=== PATIENT | male | born 1970 | race Caucasian/White ===

== ENCOUNTER 2017-03-10 07:27 | Inpatient (IN) | payer OTHER ==
[~2017-03-10] VITALS: Ht 177.8 cm; Wt 100.0 kg
[2017-03-10 13:45] VITALS: BP 163/97; RESP 18
[2017-03-10 13:58] VITALS: PULSE 100
[2017-03-10] MEDS ORDERED: LISI40TA9 PO (14:05)
[2017-03-10] MEDS ORDERED: HYDR50TA3 PO (14:05)
[2017-03-10 14:43] VITALS: Ht 177.8 cm; Wt 100.0 kg
[2017-03-10] MEDS ORDERED: ATOR40TA68 PO (14:50)
[2017-03-10] MEDS ORDERED: DOCUSATE SODIUM 100 MG CAP PO PRN (15:00)
[2017-03-10] MEDS ORDERED: NACL 0.9% 3 ML SYG IV SCH (15:00)
[2017-03-10] MEDS ORDERED: ACETAMINOPHEN 325 MG TAB PO PRN (15:00)
[2017-03-10] MEDS ORDERED: LISINOPRIL 20 MG TAB PO SCH (15:00)
[2017-03-10] MEDS ORDERED: MAGNESIUM HYDROXIDE 30ML CUP PO PRN (15:00)
[2017-03-10] MEDS ORDERED: ONDANSETRON 4 MG INJ IV PRN (15:00)
[2017-03-10] MEDS ORDERED: NITROGLYCERIN (SL) 0.4 MG TAB SL PRN (15:00)
[2017-03-10] MEDS ORDERED: BISACODYL 10 MG SUPP PR PRN (15:00)
[2017-03-10] MEDS ORDERED: HYDROCODONE/APAP (5/325) TAB PO PRN (15:00)
[2017-03-10] MEDS ORDERED: morphine 2 MG INJ IV PRN (15:00)
[2017-03-10] MEDS ORDERED: LORAZEPAM 0.5 MG TAB PO PRN (15:00)
[2017-03-10] MEDS ORDERED: PROP10TA6 PO (15:03)
--- NOTE | 2017-03-10 15:05 | RADRPT ---
Echocardiogram Report Patient Name: SELAM ROBIN Gender: Male Date: 1970 Study Date: 10-Mar-2017 Program Aide: Jessenia [facility] Location: 5548 Ref. Physician: LG DEVINE Quality: Adequate Procedures: Transthoracic echocardiogram with complete 2D, M-Mode, and doppler examination. Indications: Elevated troponin. 2D/M Mode Doppler Measurement Value Normal Ranges Measurement Value Normal Ranges LVIDd 2D 4.3 3.5 - 5.6 cm AV Peak Kian 2.0 m/sec LVIDs 2D 2.8 2.1 - 4.1 cm AV Peak PG 16.0 mmHg FS 2D 35.6 % LVOT Peak Kian 1.5 m/sec LVPWd 2D 1.3 0.6 - 1.1 cm LVOT Peak PG 9.0 mmHg IVSd 2D 1.5 0.6 - 1.1 cm MV E Peak Kian 0.7 m/sec IVS/LVPW 2D 1.1 MV A Peak Kian 1.2 m/sec AoR Diam 2D 2.8 2.0 - 3.7 cm MV E/A 0.6 LA/Ao 2D 1 0 - 1 MV Decel Time 88 msec EDV 2D 82.3 cm3 MV E/A 0.6 ESV 2D 22.0 cm3 LA Dimen 2D 3.8 2.3 - 4.0 cm Findings Left Ventricle: Normal left ventricular systolic function. Normal left ventricular cavity size. Mild concentric left ventricular hypertrophy. Ejection fraction is visually estimated at 65 %. Abnormal Diastolic Function. Right Ventricle: Normal right ventricular size. Normal right ventricular systolic function. Left Atrium: The left atrium is normal in size. Right Atrium: The right atrium is normal in size. Mitral Valve: Mild mitral leaflet calcification. Mild mitral annular calcification. Trace mitral regurgitation. Aortic Valve: Normal appearance of the aortic valve. No significant aortic stenosis or insufficiency. Tricuspid Valve: Normal appearance of the tricuspid valve. There is trace tricuspid regurgitation. Pulmonic Valve: Pulmonic valve not well visualized. There is trace pulmonic regurgitation. Pericardium: Normal pericardium with no significant pericardial effusion. Aorta: Normal aortic root. IVC: Normal size and normal respiratory collapse consistent with normal right atrial pressure. Conclusions 1.Normal left ventricular systolic function. Normal left ventricular cavity size. Mild concentric left ventricular hypertrophy. Ejection fraction is visually estimated at 65 %. Abnormal Diastolic Function. 2.Normal right ventricular size. Normal right ventricular systolic function. 3.The left atrium is normal in size. 4.The right atrium is normal in size. 5.No significant valvular stenosis or regurgitation seen. 6.Normal pericardium with no significant pericardial effusion. Electronically Signed By: Lg Devine 10-Mar-2017 15:05:18 0700 Patient Name: SELAM ROBIN Study Date: 10-Mar-[id number]
[2017-03-10 15:30] LABS: BASOPHILS % 0.2 % (0.0-2.0); HEMATOCRIT 39.4 % (42.0-52.0); HEMOGLOBIN 14.4 g/dl (14.0-18.0); LYMPHOCYTES # 1.1 10^3/ul (0.8-2.9); LYMPHOCYTES % 10.7 % (15.0-51.0); MEAN CORPUSCULAR HEMOGLOBIN 30.3 pg (29.0-33.0); MEAN CORPUSCULAR HGB CONC 36.5 g/dl (32.0-37.0); MEAN CORPUSCULAR VOLUME 82.8 fl (82.0-101.0); MONOCYTE # 0.2 10^3/ul (0.3-0.9); MONOCYTES % 2.4 % (0.0-11.0); NEUTROPHIL # 8.8 10^3/ul (1.6-7.5); NEUTROPHILS % 86.4 % (39.0-77.0); PLATELET COUNT 251 10^3/UL (140-415); RED BLOOD COUNT 4.76 10^6/ul (4.70-6.10); RED CELL DISTRIBUTION WIDTH 12.1 % (11.5-14.5); WHITE BLOOD COUNT 10.2 10^3/ul (4.8-10.8)
--- NOTE | 2017-03-10 15:43 | HP ---
Date/Time of Note Date/Time of Note DATE: 03/10/17 TIME: 15:15 Assessment/Plan VTE Prophylaxis VTE Prophylaxis Intervention: LMWH, SCD's Lines/Catheters IV Catheter Type (from Nrs): Saline Lock Assessment/Plan Assessment/Plan 46-year-old male with: 1. Left-sided pleuritic type chest pain, in setting of 4 weeks of productive cough, URI type symptoms, CT angiogram consistent with bronchiolitis, likely patient has pericarditis or myocarditis as his troponin have been slightly elevated at the outside hospital. He did get ibuprofen at the outside hospital. ESR and CRP are pending. Check enzymes have been reordered, 2D echocardiogram also pending. Cardiology is consulted and will be evaluating the patient. I will put him on some Levaquin for probable community-acquired URI/bronchitis. 2. Bronchiolitis/bronchitis, will place the patient on Levaquin 750 mg p.o. daily for 5 days. Nebulizer treatments as needed for bronchospasms. He did get a dose of steroids at [facility]. 3. Hypertension: Resume home medications, beta-blockers have been added. Hydralazine as needed. 4. Hyperlipidemia: Check fasting lipid panel in a.m., continue statin therapy. Prophylaxis: Lovenox for DVT prophylaxis, Pepcid for GI prophylaxis Disposition: Cardiology evaluation ongoing. Monitor on telemetry. HPI/ROS Admit Date/Time Admit Date/Time Mar 10, 2017 at 13:10 Hx of Present Illness Chief complaint: Cough, subacute, left-sided chest pain History of presenting illness: This is a 46-year-old male with history of hypertension on multiple medications, hyperlipidemia, cough for the past 3-1/2 to 4 weeks with productive yellow to brown sputum, and acute onset of left- sided sharp, pinprick chest pain over the past 24-48 hrs. Patient also reports dyspnea on exertion over the past 3 weeks and fatigue. No nausea, no vomiting, subjective fevers and chills on and off. He denies any previous diagnosis of coronary artery disease. He reports one sick contact at the beginning of his symptoms, at work. Otherwise at home no one else is has been sick. At [facility], patient had a chest x-ray which was negative, he had a CT angiogram that showed suggested bronchiolitis. However on his laboratory data he was found to have a normal white blood cell count and a troponin of 0.46 x 2 and 0.44. EKG did not show any acute ischemic changes. Patient was given apparently a dose of ibuprofen, dexamethasone, nebulizer treatment, aspirin, nitroglycerin. He was diagnosed with non-ST elevation DE, given a dose of Lovenox also and transferred to [facility] for cardiology evaluation. He will also given azithromycin. Upon arrival patient has been stable, he is noted to be slightly tachycardic and hypertensive. Laboratory data along with the 2D echocardiogram are pending. Dr. Devine from cardiology has been consulted. ROS Constitutional: chills, fatigue Eyes: no complaints ENT: no complaints Respiratory: no complaints Cardiovascular: chest pain (Pleuritic in nature) Gastrointestinal: no complaints Genitourinary: no complaints Musculoskeletal: no complaints Skin: no complaints Neurologic: no complaints Endocrine: no complaints Psychological: no complaints PMH/Family/Social Past Medical History Hypertension Hyperlipidemia Obesity Past Surgical History Status post left shoulder surgery remotely Family History Significant Family History: no pertinent family hx (Coronary artery disease in brother) Social History Alcohol Use: occasionally Smoking Status: Never smoker Drug Use: none Exam/Review of Systems Vital Signs Vitals Vital Signs Date Time Temp Pulse Resp B/P Pulse Ox O2 Delivery O2 Flow Rate FiO2 03/10/17 13:58 100 03/10/17 13:45 97.7 18 163/97 97 Exam Constitutional: alert, oriented, other (Obese), well developed Respiratory: clear to auscultation, normal air movement Cardiovascular: nl pulses, regular rate and rhythm Gastrointestinal: non-tender, soft Musculoskeletal: nl extremities to inspection Extremities: normal pulses 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
[2017-03-10 16:00] VITALS: PULSE 95
[2017-03-10 16:00] LABS: ANION GAP 19 (8-16); BLOOD UREA NITROGEN 21 mg/dl (7-20); CALCIUM 9.8 mg/dl (8.4-10.2); CARBON DIOXIDE 26 mmol/L (21-31); CHLORIDE 98 mmol/L (97-110); CREATINE KINASE 80 IU/L (23-200); CREATININE 0.92 mg/dl (0.61-1.24); GLUCOSE 196 mg/dl (70-220); POTASSIUM 3.7 mmol/L (3.5-5.1); SODIUM 139 mmol/L (135-144)
[2017-03-10 16:10] LABS: CK-MB 0.31 ng/ml (0.0-2.4); TROPONIN-I < 0.012 ng/ml (0.00-0.12)
[2017-03-10] MEDS: METOPROLOL 25 MG TAB PO SCH ×2 (16:16→20:54)
[2017-03-10 16:20] LABS: C-REACTIVE PROTEIN 0.7 mg/dl (0.0-0.9)
[2017-03-10 16:24] VITALS: BP 166/100; RESP 20
--- NOTE | 2017-03-10 16:27 | CONS ---
Date/Time of Note Date/Time of Note DATE: 03/10/17 TIME: 16:20 Assessment/Plan Assessment/Plan Additional Assessment/Plan Chest pain, cough Minimally elevated troponin Preserved ejection fraction Hypertension Dyslipidemia Anxiety -Patient with symptoms of cough for 3 weeks which has become more productive. Troponins at outside facility was 0.4 on 2 draws. Troponins here are negative. Echocardiogram with preserved ejection fraction. Patient with symptoms of cough and night sweats going on for a few weeks with minimally elevated troponin at outside facility, this is less likely secondary to coronary ischemia but still a possibility given risk factors. Recommend continuing telemetry monitoring, proceed with Lexiscan nuclear cardiac perfusion study. Given cough, would stop ADI inhibitor at the current time. Consultation Date/Type/Reason Admit Date/Time Mar 10, 2017 at 13:10 Type of Consultation: cv Reason for Consultation Chest pain Hx of Present Illness This is a 46-year-old male who presented to an outside facility secondary to cough and chest pain. Patient admits to cough starting approximately 3 weeks ago which has at times been productive and at times nonproductive. He developed chest discomfort with coughing over the past few weeks. The day prior to admission, patient also with pins and needle sensation on the left side of chest. Because of the above reasons, patient went to the emergency room for evaluation care. Troponins were mildly elevated and outside facility and patient transferred to our facility for further cardiac evaluation. Prior to this, he denies symptoms of shortness of breath with activity but does complain of fatigue. He does complain of night sweats. 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 Exam/Review of Systems Vital Signs Vitals Vital Signs Date Time Temp Pulse Resp B/P Pulse Ox O2 Delivery O2 Flow Rate FiO2 03/10/17 16:00 95 03/10/17 13:45 97.7 18 163/97 97 Exam No apparent distress Constitutional: alert, obese, oriented Head: normocephalic Respiratory: other (Coarse breath sounds bilaterally with scattered rhonchi more so at the right base) Cardiovascular: other (S1-S2 heard), regular rate and rhythm Gastrointestinal: bowel sounds, non-tender, other (No guarding), soft Extremities: other (No significant edema) Results Result Diagram: 03/10/17 1519 03/10/17 1519 Results 24 hrs Laboratory Tests Test 03/10/17 15:19 White Blood Count 10.2 Red Blood Count 4.76 Hemoglobin 14.4 Hematocrit 39.4 L Mean Corpuscular Volume 82.8 Mean Corpuscular Hemoglobin 30.3 Mean Corpuscular Hemoglobin Concent 36.5 Red Cell Distribution Width 12.1 Platelet Count 251 Mean Platelet Volume 10.0 Neutrophils % 86.4 H Lymphocytes % 10.7 L Monocytes % 2.4 Eosinophils % 0.0 Basophils % 0.2 Nucleated Red Blood Cells % 0.0 Neutrophils # 8.8 H Lymphocytes # 1.1 Monocytes # 0.2 L Eosinophils # 0.0 Basophils # 0.0 Nucleated Red Blood Cells # 0.0 Sodium Level 139 Potassium Level 3.7 Chloride Level 98 Carbon Dioxide Level 26 Anion Gap 19 H Blood Urea Nitrogen 21 H Creatinine 0.92 Glucose Level 196 Calcium Level 9.8 Creatine Kinase 80 Creatine Kinase Index 0.4 Creatinine Kinase MB (Mass) 0.31 Troponin I < 0.012 C-Reactive Protein Pending Medications Medications Current Medications Lorazepam (Ativan) 0.5 mg Q8H PRN PO ANXIETY; Start 03/10/17 at 15:00 Ondansetron HCl (Zofran Inj) 4 mg Q6H PRN IV NAUSEA AND/OR VOMITING; Start at 15:00 Aspirin (Aspirin) 81 mg DAILY PO ; Start 03/11/17 at 09:00 Nitroglycerin (Nitroglycerin (Sl Tab) 0.4 Mg) 1 tab Q5M PRN SL CHEST PAIN; Start 03/10/17 at 15:00 Acetaminophen (Tylenol Tab) 650 mg Q6H PRN PO PAIN LEVEL 1-3 OR FEVER Last administered on 03/10/17t 16:10; Admin Dose 650 MG; Start 03/10/17 at 15:00 Acetaminophen/ Hydrocodone Bitart ([place] (5/325)) 1 tab Q6H PRN PO PAIN LEVEL 4 -6; Start 03/10/17 at 15:00 Morphine Sulfate (morphine) 2 mg Q4H PRN IV PAIN LEVEL 7-10; Start 03/10/17 at 15:00 Docusate Sodium (Colace) 100 mg Q12H PRN PO CONSTIPATION; Start 03/10/17 at 15 :00 Magnesium Hydroxide (Milk Of Mag) 30 ml DAILY PRN PO CONSTIPATION; Start 03/10 at 15:00 Bisacodyl (Dulcolax Supp) 10 mg DAILY PRN [place] CONSTIPATION; Start 03/10/17 at 15:00 Famotidine (Pepcid) 20 mg Q12 PO ; Start 03/10/17 at 21:00 Enoxaparin Sodium (Lovenox) 40 mg DAILY SC ; Start 03/11/17 at 09:00 Atorvastatin Calcium (Lipitor) 40 mg QHS PO ; Start 03/10/17 at 21:00 Lisinopril (Zestril) 40 mg DAILY PO Last administered on 03/10/17t 16:15; Admin Dose 40 MG; Start 03/10/17 at 15:00 Metoprolol Tartrate (Lopressor) 25 mg BID PO Last administered on 03/10/17t 16 :16; Admin Dose 25 MG; Start 03/10/17 at 15:00 Levofloxacin (Levaquin) 750 mg DAILY@06 PO ; Start 03/10/17 at 16:30 Procedures Procedures ECG done today demonstrates sinus rhythm 97 bpm, QRS 94 ms, nonspecific T-wave abnormalities CT pulmonary angiogram done yesterday with no evidence of pulmonary emboli, evidence of bronchiolitis Lg Devine DO Mar 10, 2017 16:27
[2017-03-10] MEDS: LEVOFLOXACIN 750 MG TABLET PO SCH (16:54)
[2017-03-10] MEDS: ATORVASTATIN 40 MG TAB PO SCH ×2 (19:27→20:54)
[2017-03-10 20:00] VITALS: PULSE 91
[2017-03-10 20:24] VITALS: BP 144/90; RESP 20
[2017-03-10] MEDS: FAMOTIDINE 20 MG TAB PO SCH (20:54)
[2017-03-11] VITALS (8 sets, daily range): BP systolic 136–160; BP diastolic 74–102; PULSE 64–86; RESP 20
[2017-03-11] MEDS: LEVOFLOXACIN 750 MG TABLET PO SCH (06:15)
[2017-03-11] MEDS: METOPROLOL 25 MG TAB PO SCH (08:27)
[2017-03-11] MEDS: FAMOTIDINE 20 MG TAB PO SCH (08:27)
[2017-03-11 08:28] LABS: CHOL/HDL RATIO 6.3 RATIO
[2017-03-11 08:32] LABS: ALBUMIN 4.4 g/dl (3.3-4.9); ALBUMIN/GLOBULIN RATIO 1.46; BILIRUBIN,INDIRECT 0.4 mg/dl (0-1.1); BILIRUBIN,TOTAL 0.4 mg/dl (0.2-1.3); CALCIUM 9.2 mg/dl (8.4-10.2); CREATININE 0.9 mg/dl (0.61-1.24); MAGNESIUM 1.9 mg/dl (1.7-2.5); POTASSIUM 3.7 mmol/L (3.5-5.1); TOTAL PROTEIN 7.4 g/dl (6.1-8.1)
[2017-03-11] MEDS ORDERED: ASPIRIN 81 MG TAB PO SCH (09:00)
[2017-03-11] MEDS ORDERED: ENOXAPARIN 40 MG/0.4 ML SYG SC SCH (09:00)
[2017-03-11] MEDS ORDERED: REGADENOSON 0.4 MG/5 ML SYG ONE (09:15)
[2017-03-11] MEDS ORDERED: GUAIFENESIN 20 MG/ML 5ML CUP PO PRN (11:00)
--- NOTE | 2017-03-11 12:41 | PN ---
Date/Time of Note Date/Time of Note DATE: 03/11/17 TIME: 12:22 Assessment/Plan VTE Prophylaxis VTE Prophylaxis Intervention: LMWH Lines/Catheters IV C[facility]ter Type (from [facility]): Saline Lock Assessment/Plan Assessment/Plan 46-year-old male with: 1. Left-sided pleuritic type chest pain, in setting of 4 weeks of productive cough, URI type symptoms, CT angiogram consistent with bronchiolitis, likely patient has pericarditis or myocarditis as his troponin have been slightly elevated at the outside hospital. He did get ibuprofen at the outside hospital. ESR and CRP negative. Repeat cardiac enzymes here at [facility] completely negative 2D echocardiogram also within normal limits. Appreciate cardiology recommendation, stress test in progress, depending on result disposition will be finalized. Continue Levaquin Levaquin for probable community-acquired URI/bronchitis 2. Bronchiolitis/bronchitis, continue Levaquin 750 mg p.o. daily for 5 days. Nebulizer treatments as needed for bronchospasms. He did get a dose of steroids at [facility]. 3. Hypertension: Continue home medications along with beta-blockers. 4. Hyperlipidemia: Continue Lipitor 40 mg p.o. nightly. Prophylaxis: Lovenox for DVT prophylaxis, Pepcid for GI prophylaxis Disposition: Stress test in progress, depending on results, disposition to be finalized. Subjective 24 Hr Interval Summary Free Text/Dictation Patient was no complaints today, he is not complaining of chest pain, respiratory status stable, on room air, undergoing stress test currently. Depending on results, he may be discharged later today or requiring additional procedures. 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, nl mental status, nl speech, nl strength Results Result Diagram: 03/10/17 1519 03/11/17 0729 Results 24 hrs Laboratory Tests Test 03/10/17 15:19 03/11/17 07:26 03/11/17 07:29 White Blood Count 10.2 Red Blood Count 4.76 Hemoglobin 14.4 Hematocrit 39.4 L Mean Corpuscular Volume 82.8 Mean Corpuscular Hemoglobin 30.3 Mean Corpuscular Hemoglobin Concent 36.5 Red Cell Distribution Width 12.1 Platelet Count 251 Mean Platelet Volume 10.0 Neutrophils % 86.4 H Lymphocytes % 10.7 L Monocytes % 2.4 Eosinophils % 0.0 Basophils % 0.2 Nucleated Red Blood Cells % 0.0 Neutrophils # 8.8 H Lymphocytes # 1.1 Monocytes # 0.2 L Eosinophils # 0.0 Basophils # 0.0 Nucleated Red Blood Cells # 0.0 Erythrocyte Sedimentation Rate 5 Sodium Level 139 141 Potassium Level 3.7 3.7 Chloride Level 98 98 Carbon Dioxide Level 26 30 Anion Gap 19 H 17 H Blood Urea Nitrogen 21 H 21 H Creatinine 0.92 0.90 Glucose Level 196 168 Calcium Level 9.8 9.2 Creatine Kinase 80 Creatine Kinase Index 0.4 Creatinine Kinase MB (Mass) 0.31 Troponin I < 0.012 C-Reactive Protein 0.7 Triglycerides Level 350 H Cholesterol Level 236 H LDL Cholesterol, Calculated 129 HDL Cholesterol 37 Cholesterol/HDL Ratio 6.3 Magnesium Level 1.9 Total Bilirubin 0.4 Direct Bilirubin 0.00 Indirect Bilirubin 0.4 Aspartate Amino Transf (AST/SGOT) 34 Alanine Aminotransferase (ALT/SGPT) 96 H Alkaline Phosphatase 56 Total Protein 7.4 Albumin 4.4 Globulin 3.00 Albumin/Globulin Ratio 1.46 Medications Medications Current Medications Lorazepam (Ativan) 0.5 mg Q8H PRN PO ANXIETY; Start 03/10/17 at 15:00 Ondansetron HCl (Zofran Inj) 4 mg Q6H PRN IV NAUSEA AND/OR VOMITING; Start at 15:00 Aspirin (Aspirin) 81 mg DAILY PO Last administered on 03/11/17t 08:27; Admin Dose 81 MG; Start 03/11/17 at 09:00 Nitroglycerin (Nitroglycerin (Sl Tab) 0.4 Mg) 1 tab Q5M PRN SL CHEST PAIN; Start 03/10/17 at 15:00 Acetaminophen (Tylenol Tab) 650 mg Q6H PRN PO PAIN LEVEL 1-3 OR FEVER Last administered on 03/10/17 16:10; Admin Dose 650 MG; Start 03/10/17 at 15:00 Acetaminophen/ Hydrocodone Bitart ([place] (5/325)) 1 tab Q6H PRN PO PAIN LEVEL 4 -6; Start 03/10/17 at 15:00 Morphine Sulfate (morphine) 2 mg Q4H PRN IV PAIN LEVEL 7-10; Start 03/10/17 at 15:00 Docusate Sodium (Colace) 100 mg Q12H PRN PO CONSTIPATION; Start 03/10/17 at 15 :00 Magnesium Hydroxide (Milk Of Mag) 30 ml DAILY PRN PO CONSTIPATION; Start 03/10 at 15:00 Bisacodyl (Dulcolax Supp) 10 mg DAILY PRN [place] CONSTIPATION; Start 03/10/17 at 15:00 Famotidine (Pepcid) 20 mg Q12 PO Last administered on 03/11/17 08:27; Admin Dose 20 MG; Start 03/10/17 at 21:00 Enoxaparin Sodium (Lovenox) 40 mg DAILY SC Last administered on 03/11/17 08: 29; Admin Dose 40 MG; Start 03/11/17 at 09:00 Atorvastatin Calcium (Lipitor) 40 mg QHS PO Last administered on 03/10/17 20: 54; Admin Dose 40 MG; Start 03/10/17 at 21:00 Metoprolol Tartrate (Lopressor) 25 mg BID PO Last administered on 03/11/17 08 :27; Admin Dose 25 MG; Start 03/10/17 at 15:00 Levofloxacin (Levaquin) 750 mg DAILY@06 PO Last administered on 03/11/17 06: 15; Admin Dose 750 MG; Start 03/10/17 at 16:30 Guaifenesin (Robitussin Liquid Cup) 200 mg Q6H PRN PO COUGH Last administered on 03/11/17 12:02; Admin Dose 200 MG; Start 03/11/17 at 11:00 MUSA GABRIEL Mar 11, 2017 12:32
--- NOTE | 2017-03-11 13:16 | RADRPT ---
AMENDMENT: 03/11/2017 3:26:42 PM Annabel Queen Md In addition, poststress perfusion images were obtained in the prone position, which confirmed the pr esence of reduced perfusion in the inferior wall, visualized on the poststress perfusion images obta ined in the supine position and on the resting perfusion images. PROCEDURE: Lexiscan myocardial perfusion study CLINICAL INDICATION: 46 -year-old patient complaining of chest pain. TECHNIQUE: Lexiscan 0.4 mg intravenously separate acquisition gated myocardial perfusion SPECT usi ng Tc 99m Myoview 33.3 mCi intravenously at stress and Tc-99m Myoview, 10.4 mCi intravenously at res t was performed using the rest/stress sequence. Poststress Myoview SPECT images were obtained in th e supine position. COMPARISON: No prior studies. FINDINGS: Perfusion images reveal a moderate size moderate in degree nonreversible perfusion defect in the inf erior wall. Lexiscan post stress gated SPECT images demonstrate mild hypokinesis of the inferior wall.. IMPRESSION: 1. The type and distribution of the scintigraphic abnormalities are most consistent with a moderate -sized nonreversible perfusion defect in the inferior wall. 2. Mild hypokinesis of the inferior wall. 3. The left ventricle ejection fraction at stress is 41%. A call report was made to Dr. Devine at 01:13 p.m. on March 11, 2017. RPTAT: HH .Annabel Queen MD, MD Date Time Electronically viewed and signed by .Annabel Queen MD, MD on 03/11/2017 15:26 .L/
--- NOTE | 2017-03-11 14:06 | CONS ---
Date/Time of Note Date/Time of Note DATE: 03/11/17 TIME: 14:05 Assessment/Plan Assessment/Plan Additional Assessment/Plan Chest pain, cough Minimally elevated troponin from outside facility Preserved ejection fraction Hypertension Dyslipidemia Anxiety -Patient with improvement in cough and denies shortness of breath. Troponins at our facility have been negative. Plan for nuclear cardiac perfusion study today. Antibiotics as per primary team. Consultation Date/Type/Reason Admit Date/Time Mar 10, 2017 at 13:10 Initial Consult Date Type of Consultation: cv 24 HR Interval Summary Free Text/Dictation Patient feeling better today, still with cough but improved. Denies current chest pain or shortness of breath Exam/Review of Systems Vital Signs Vitals Vital Signs Date Time Temp Pulse Resp B/P Pulse Ox O2 Delivery O2 Flow Rate FiO2 03/11/17 12:41 98.1 67 20 160/96 93 Intake and Output 03/10/17 03/10/17 03/11/17 15:00 23:00 07:00 Intake Total 600 ml 300 ml Balance 600 ml 300 ml Exam No apparent distress Constitutional: alert, oriented Head: normocephalic Respiratory: other (Coarse breath sounds bilaterally with scattered rhonchi, minimal end expiratory wheezing) Cardiovascular: other (S1-S2 heard), regular rate and rhythm Gastrointestinal: bowel sounds, non-tender, soft Extremities: other (No significant edema) Results Result Diagram: 03/10/17 1519 03/11/17 0729 Results 24 hrs Laboratory Tests Test 03/10/17 15:19 03/11/17 07:26 03/11/17 07:29 White Blood Count 10.2 Red Blood Count 4.76 Hemoglobin 14.4 Hematocrit 39.4 L Mean Corpuscular Volume 82.8 Mean Corpuscular Hemoglobin 30.3 Mean Corpuscular Hemoglobin Concent 36.5 Red Cell Distribution Width 12.1 Platelet Count 251 Mean Platelet Volume 10.0 Neutrophils % 86.4 H Lymphocytes % 10.7 L Monocytes % 2.4 Eosinophils % 0.0 Basophils % 0.2 Nucleated Red Blood Cells % 0.0 Neutrophils # 8.8 H Lymphocytes # 1.1 Monocytes # 0.2 L Eosinophils # 0.0 Basophils # 0.0 Nucleated Red Blood Cells # 0.0 Erythrocyte Sedimentation Rate 5 Sodium Level 139 141 Potassium Level 3.7 3.7 Chloride Level 98 98 Carbon Dioxide Level 26 30 Anion Gap 19 H 17 H Blood Urea Nitrogen 21 H 21 H Creatinine 0.92 0.90 Glucose Level 196 168 Calcium Level 9.8 9.2 Creatine Kinase 80 Creatine Kinase Index 0.4 Creatinine Kinase MB (Mass) 0.31 Troponin I < 0.012 C-Reactive Protein 0.7 Triglycerides Level 350 H Cholesterol Level 236 H LDL Cholesterol, Calculated 129 HDL Cholesterol 37 Cholesterol/HDL Ratio 6.3 Magnesium Level 1.9 Total Bilirubin 0.4 Direct Bilirubin 0.00 Indirect Bilirubin 0.4 Aspartate Amino Transf (AST/SGOT) 34 Alanine Aminotransferase (ALT/SGPT) 96 H Alkaline Phosphatase 56 Total Protein 7.4 Albumin 4.4 Globulin 3.00 Albumin/Globulin Ratio 1.46 Medications Medications Current Medications Lorazepam (Ativan) 0.5 mg Q8H PRN PO ANXIETY; Start 03/10/17 at 15:00 Ondansetron HCl (Zofran Inj) 4 mg Q6H PRN IV NAUSEA AND/OR VOMITING; Start at 15:00 Aspirin (Aspirin) 81 mg DAILY PO Last administered on 03/11/17 08:27; Admin Dose 81 MG; Start 03/11/17 at 09:00 Nitroglycerin (Nitroglycerin (Sl Tab) 0.4 Mg) 1 tab Q5M PRN SL CHEST PAIN; Start 03/10/17 at 15:00 Acetaminophen (Tylenol Tab) 650 mg Q6H PRN PO PAIN LEVEL 1-3 OR FEVER Last administered on 03/10/17 16:10; Admin Dose 650 MG; Start 03/10/17 at 15:00 Acetaminophen/ Hydrocodone Bitart ([place] (5/325)) 1 tab Q6H PRN PO PAIN LEVEL 4 -6; Start 03/10/17 at 15:00 Morphine Sulfate (morphine) 2 mg Q4H PRN IV PAIN LEVEL 7-10; Start 03/10/17 at 15:00 Docusate Sodium (Colace) 100 mg Q12H PRN PO CONSTIPATION; Start 03/10/17 at 15 :00 Magnesium Hydroxide (Milk Of Mag) 30 ml DAILY PRN PO CONSTIPATION; Start 03/10 at 15:00 Bisacodyl (Dulcolax Supp) 10 mg DAILY PRN [place] CONSTIPATION; Start 03/10/17 at 15:00 Famotidine (Pepcid) 20 mg Q12 PO Last administered on 03/11/17 08:27; Admin Dose 20 MG; Start 03/10/17 at 21:00 Enoxaparin Sodium (Lovenox) 40 mg DAILY SC Last administered on 03/11/17 08: 29; Admin Dose 40 MG; Start 03/11/17 at 09:00 Atorvastatin Calcium (Lipitor) 40 mg QHS PO Last administered on 03/10/17 20: 54; Admin Dose 40 MG; Start 03/10/17 at 21:00 Metoprolol Tartrate (Lopressor) 25 mg BID PO Last administered on 03/11/17 08 :27; Admin Dose 25 MG; Start 03/10/17 at 15:00 Levofloxacin (Levaquin) 750 mg DAILY@06 PO Last administered on 03/11/17 06: 15; Admin Dose 750 MG; Start 03/10/17 at 16:30 Guaifenesin (Robitussin Liquid Cup) 200 mg Q6H PRN PO COUGH Last administered on 03/11/17 12:02; Admin Dose 200 MG; Start 03/11/17 at 11:00 Lg Devine DO Mar 11, 2017 14:06
--- NOTE | 2017-03-11 15:31 | EN ---
Date/Time of Note Date/Time of Note DATE: 03/11/17 TIME: 15:25 Event Note Cardiology Cardiology Event Note 03/11/17 Lexiscan ECG Report 46 y/o male with chest pain Baseline ECG SR @63bpm, inferolateral T wave inversions BP: 167/98 Lexiscan administered as per protocol Symptoms of hot flashes, shortness of breath which resolved in recovery Peak BP 181/107 ECG: no significant changes Arrhythmia: rare PVC ECG interpretation: Non-ischemic Lg Devine DO Mar 11, 2017 15:31
--- NOTE | 2017-03-11 16:31 | PDOCDIS ---
Discharge Instructions CONDITION Patient Condition: Stable HOME CARE INSTRUCTIONS: Diet Instructions: Low Fat /Cholesterol ACTIVITY: Activity Restrictions: Slowly Increase Activity FOLLOW UP/APPOINTMENTS Follow-up Plan Follow-up with primary care physician within 1-2 weeks Follow-up with cardiology as an outpatient within 2-4 weeks MUSA GABRIEL Mar 11, 2017 16:31
[2017-03-11] MEDS ORDERED: ALBU18HF INHALATION (16:41)
[2017-03-11] MEDS ORDERED: LEVO750T25 PO (16:41)
[2017-03-11] MEDS ORDERED: METO-448 PO (16:41)
[2017-03-11] MEDS ORDERED: ASPI81TA3 PO (16:41)
[2017-03-11] MEDS ORDERED: HYDR-3498 PO (16:42)
--- NOTE | 2017-03-11 17:03 | DS ---
Date/Time of Note Date/Time of Note DATE: 03/11/17 TIME: 16:57 Discharge Summary Admission/Discharge Info Admit Date/Time Mar 10, 2017 at 13:10 Discharge Date/Time 03/11/2017 Discharge Diagnosis 1. Left-sided pleuritic type chest pain. Equivocal Lexiscan stress test 2. Bronchiolitis/bronchitis with Occasional bronchospasms 3. Hypertension 4. Hyperlipidemia Patient Condition: Good Consults Cardiology, Dr. Devine Procedures Lexiscan stress test 2D echocardiogram Hx of Present Illness Chief complaint: Cough, subacute, left-sided chest pain History of presenting illness: This is a 46-year-old male with history of hypertension on multiple medications, hyperlipidemia, cough for the past 3-1/2 to 4 weeks with productive yellow to brown sputum, and acute onset of left- sided sharp, pinprick chest pain over the past 24-48 hrs. Patient also reports dyspnea on exertion over the past 3 weeks and fatigue. No nausea, no vomiting, subjective fevers and chills on and off. He denies any previous diagnosis of coronary artery disease. He reports one sick contact at the beginning of his symptoms, at work. Otherwise at home no one else is has been sick. At [facility], patient had a chest x-ray which was negative, he had a CT angiogram that showed suggested bronchiolitis. However on his laboratory data he was found to have a normal white blood cell count and a troponin of 0.46 x 2 and 0.44. EKG did not show any acute ischemic changes. Patient was given apparently a dose of ibuprofen, dexamethasone, nebulizer treatment, aspirin, nitroglycerin. He was diagnosed with non-ST elevation ME, given a dose of Lovenox also and transferred to [facility] for cardiology evaluation. He will also given azithromycin. Upon arrival patient has been stable, he is noted to be slightly tachycardic and hypertensive. Laboratory data along with the 2D echocardiogram are pending. Dr. Devine from cardiology has been consulted. Hospital Course Upon arrival patient had his CBC checked which was within normal, renal function within normal, set of troponins negative here at [facility]. 2D echocardiogram within normal with no acute findings. He was coughing and his symptoms are definitely consistent with bronchiolitis and bronchitis. He has been maintained on Levaquin 750 mg p.o. daily and he will complete a total of 7 days. He remains afebrile. He had a Lexiscan stress test today and the results are showing a possible non-reversible ischemic area. The patient had a long discussion with the die cutter apprentice, Dr. Devine, he refuses all interventional procedures. He agrees to pursue medical management only for now. He will be discharged home on aspirin, beta blockers, statin therapy and his blood pressure medications. He is to follow-up with his primary care physician and with cardiology as needed. I also gave him a prescription for Ventolin HFA as needed as he seems to have occasional bronchospasms which would be consistent with his bronchiolitis. Home Meds Active Scripts Hydrocodone Bit-Acetaminophen (Hydrocodone Bit-APAP) 5-325MG Tablet, 1 TAB PO Q6H Y for PAIN LEVEL 4-6, #20 TAB Prov:HARVEYBethanyCecilioTOMMYEMMANUELLE Vega 03/11/17 Albuterol Sulfate* (Ventolin HFA*) 18 Gm Hfa.aer.ad, 2 PUFF INHALATION Q6H, #1 INHALER Prov:HARVEYBethanyNBA Vega 03/11/17 Metoprolol Tartrate* (Lopressor*) 25 Mg Tab, 25 MG PO BID for 30 Days, TAB 3 Refills Prov:HARVEYBethanyNBA Vega 03/11/17 Aspirin (Aspirin) 81 Mg Chew, 81 MG PO DAILY for 30 Days, TAB 3 Refills Prov:MUSA GABRIEL 03/11/17 Levofloxacin* (Levaquin*) 750 Mg Tablet, 750 MG PO DAILY for 5 Days, TAB Prov:HARVEYBethanyNBA Vega 03/11/17 Reported Medications Atorvastatin* (Atorvastatin*) 40 Mg Tablet, MG PO QHS, #30 TAB 03/10/17 Lisinopril* (Lisinopril*) 40 Mg Tablet, 40 MG PO DAILY, #30 TAB 03/10/17 Hydrochlorothiazide* (Hydrochlorothiazide*) 50 Mg Tab, 50 MG PO DAILY, #30 TAB 03/10/17 Discontinued Reported Medications Propranolol Hcl* (Propranolol Hcl*) 10 Mg Tablet, 10 MG PO BID, TAB 03/10/17 Follow-up Plan Follow-up with primary care physician within 1-2 weeks Follow-up with cardiology as an outpatient within 2-4 weeks Primary Care Provider Not On Staff Doctor Time spent on discharge: > 30 minutes Pending Labs Laboratory Tests Test 03/11/17 07:26 03/11/17 07:29 Triglycerides Level 350mg/dl (0-149) Cholesterol Level 236mg/dl (100-200) LDL Cholesterol, Calculated 129mg/dl HDL Cholesterol 37mg/dl (27-67) Cholesterol/HDL Ratio 6.3RATIO Sodium Level 141mmol/L (135-144) Potassium Level 3.7mmol/L (3.5-5.1) Chloride Level 98mmol/L (97-110) Carbon Dioxide Level 30mmol/L (21-31) Anion Gap 17 (8-16) Blood Urea Nitrogen 21mg/dl (7-20) Creatinine 0.90mg/dl (0.61-1.24) Glucose Level 168mg/dl (70-220) Calcium Level 9.2mg/dl (8.4-10.2) Magnesium Level 1.9mg/dl (1.7-2.5) Total Bilirubin 0.4mg/dl (0.2-1.3) Direct Bilirubin 0.00mg/dl (0.00-0.20) Indirect Bilirubin 0.4mg/dl (0-1.1) Aspartate Amino Transf (AST/SGOT) 34IU/L (15-46) Alanine Aminotransferase (ALT/SGPT) 96IU/L (13-69) Alkaline Phosphatase 56IU/L (42-121) Total Protein 7.4g/dl (6.1-8.1) Albumin 4.4g/dl (3.3-4.9) Globulin 3.00g/dl (1.3-3.2) Albumin/Globulin Ratio 1.46 Microbiology Date/Time Source Procedure Growth Status 03/10/17 19:00 Nares MRSA Screen - Preliminary Screening in process Resulted MUSA GABRIEL Mar 11, 2017 17:03
--- NOTE | 2017-03-11 18:31 | RADRPT ---
Vent Rate: 97 bpm RR Interval: 0 msec [place] Interval: 170 msec QRS Duration: 94 msec QT Interval: 366 msec QTC Interval: 464 msec P-R-T [place]: 69 - 72 - 70 degrees Normal sinus rhythm Minimal voltage criteria for LVH, may be normal variant T wave abnormality, consider lateral ischemia Prolonged QT Abnormal ECG Electronically Signed By: Sudhir Zayas [id number]
== END 2017-03-11 17:56 | disposition home or self-care (01) | DRG 203 ==
LOC: MS4 13:10
PROVIDERS: ADMIT Internal Medicine; ATTEND Internal Medicine
DX: J21.9 Acute bronchiolitis, unspecified (principal); I10 Essential (primary) hypertension; J40 Bronchitis, not specified as acute or chronic; E78.5 Hyperlipidemia, unspecified; R07.9 Chest pain, unspecified; F41.9 Anxiety disorder, unspecified
CPT/HCPCS: 78452; 80048; 80053; 80061; 82550; 82553; 83735; 84484; 85025; 85651; 86140; 87081; 93005; 93017; 93306; A9500; A9505; J1650; J2785